=== PATIENT | female | born 1965 ===

== ENCOUNTER 2019-10-06 15:02 | Outpatient (CLI) | payer OTHER | END 2019-10-06 15:15 | disposition home or self-care (01) | LOC: MRI 15:02 | DX: M25.062 Hemarthrosis, left knee (principal) | CPT/HCPCS: 73718 ==

== ENCOUNTER → 2019-10-06 | Emergency (ER) | payer OTHER ==
[~2019-10-06] VITALS: Ht 160 cm; Wt 60.8 kg
[~2019-10-06] MED LIST: HUMALOG100 UNIT/2; LANTUS SOL100 UNIT/1; SYNTHROID75 MCG
== END | disposition home or self-care (01) ==
LOC: ER 09:13
DX: S60.222A Contusion of left hand, initial encounter (principal); S80.02XA Contusion of left knee, initial encounter; M25.062 Hemarthrosis, left knee; W01.0XXA Fall on same level from slipping, tripping and stumbling without subsequent striking against object, initial encounter; Y93.89 Activity, other specified; Y92.098 Other place in other non-institutional residence as the place of occurrence of the external cause; Y99.8 Other external cause status

== ENCOUNTER 2019-10-10 10:41 | Emergency (ER) | payer OTHER ==
[~2019-10-10] VITALS: Ht 162.6 cm; Wt 52.2 kg
== END 2019-10-10 13:22 | disposition home or self-care (01) ==
LOC: ER 10:41
DX: L03.114 Cellulitis of left upper limb (principal)